=== PATIENT | male | born 1965 | race Caucasian/White ===

== ENCOUNTER 2022-09-05 00:46 | Emergency (ER) | payer OTHER ==
[2022-09-05] MEDS ORDERED: Sodium Chloride 0.9% 10 ML Syringe FLUSH PRN (01:03)
[2022-09-05] MEDS ORDERED: Aspirin 81 MG Tab.Chew PO ONE (01:03)
[2022-09-05 01:15] LABS: ESTIMATED GFR 77 mL/min (>60)
== END 2022-09-05 03:39 | disposition home or self-care (01) ==
LOC: FB.ED 00:46
DX: R07.9 Chest pain, unspecified (principal); Z88.0 Allergy status to penicillin
CPT/HCPCS: 36415; 71045; 80053; 83735; 84484; 85025; 85379; 93005; 99285